=== PATIENT | female | born 1990 | race Caucasian/White ===

== ENCOUNTER 2021-11-23 14:28 | Outpatient (CLI) | payer OTHER, SELFPAY | END 2021-11-23 14:29 | disposition home or self-care (01) | LOC: LKVREF 12-04 08:28 | PROVIDERS: PCP Physician Assistant Medical; Visit Provider Emergency Medicine | DX: R30.0 Dysuria (principal); R39.15 Urgency of urination; N39.0 Urinary tract infection, site not specified | CPT/HCPCS: 87086; 87186 ==

== ENCOUNTER 2022-03-05 07:41 | Outpatient (CLI) | payer SELFPAY ==
--- NOTE | 2022-03-05 08:15 | CRLHL7_ITS ---
For Patients: As a result of the Cures Act, medical imaging exams and procedure reports are released immediately into your electronic medical record. You may view this report before your referring provider. If you have questions, please contact your health care provider. INDICATION: Evaluate size and dates TECHNIQUE: Ultrasound OB pelvis transvaginal. Real time siegel scale imaging of the pelvis was performed. COMPARISON: None FINDINGS: Sonographic imaging demonstrates a single living intrauterine gestation. The embryo demonstrates a regular cardiac rate measuring 71 beats per minute. The embryo`s crown rump length measurement of 2.5 cm corresponds to a gestational age of 9 weeks 1 day with a sonographic due date of 10/07/2022. There is a normal appearing yolk sac. There are no gross abnormalities noted within the embryo at this early state of development. The placenta has not yet developed. The gestational sac has a normal appearance. 1.1 centimeter x 0.5 centimeter x 1.5 centimeter subchorionic hemorrhage the amount of fluid within the sac appears appropriate for gestational age. The cervix is closed. The myometrium appears normal. The ovaries are of normal size. There are no suspicious fluid collections noted in the cul-de-sac. IMPRESSION: Viable intrauterine . Gestational age calculated at 9 weeks 1 day with a sonographic due date of 10/07/2022. 1.1 centimeter x 0.5 centimeter x 1.5 centimeters subchorionic hemorrhage. Dictated by Garry Beckford MD @ 03/05/2022 8:42:49 AM (Electronically Signed)
== END 2022-03-05 07:42 | disposition home or self-care (01) ==
LOC: US 07:43
PROVIDERS: PCP Physician Assistant Medical; Visit Provider Registered Nurse
DX: Z34.91 Encounter for supervision of normal pregnancy, unspecified, first trimester (principal); Z3A.08 8 weeks gestation of pregnancy
CPT/HCPCS: 76817

== ENCOUNTER 2022-03-05 10:00 | Outpatient (CLI) | payer SELFPAY ==
[2022-03-05 12:59] LABS: Chlamydia DNA Amplified* NOT DETECTED (No Detected); GC DNA Amplified* NOT DETECTED (No Detected)
[2022-03-05 13:05] LABS: Hepatitis B Surface Antigen* Negative (Negative)
[2022-03-05 13:15] LABS: HIV 1/2/P24 Combo Screen* Negative (Negative)
[2022-03-05 13:23] LABS: Hepatitis C Virus Antibody* Negative (Negative)
[2022-03-07 12:22] LABS: Rapid Plasma Reagin (RPR) Non Reactive (Non Reactive)
== END 2022-03-05 10:01 | disposition home or self-care (01) ==
PROVIDERS: PCP Physician Assistant Medical; Visit Provider Registered Nurse
DX: Z34.91 Encounter for supervision of normal pregnancy, unspecified, first trimester (principal)
CPT/HCPCS: 86592; 86703; 86762; 86787; 86803; 86850; 86900; 86901; 87086; 87340; 87491; 87591

== ENCOUNTER 2022-05-21 09:14 | Outpatient (CLI) | payer BC, SELFPAY ==
--- NOTE | 2022-05-21 09:15 | CRLHL7_ITS ---
For Patients: As a result of the Century Cures Act, medical imaging exams and procedure reports are released immediately into your electronic medical record. You may view this report before your referring provider. If you have questions, please contact your health care provider. OB ULTRASOUND CLINICAL HISTORY: anatomy survey. OSMIN by LMP: 10/10/2022. GA: 19 w, 5 d. INDICATION: anatomy survey. FINDINGS: position: Multiple positions. Cervix: Visualized. Technique: Transabdominal. Length of closed cervix: 3.7 cm. Placenta/cord: Anterior. Technique: Transabdominal. Placenta tip to internal OS: 2.9 cm. Umbilical Cord: 3-vessel cord. Placenta insertion: Central. Amniotic Fluid: 5.7 cm SDP (greater than/equal to: 2- less than 8 cm). SURVEY: Observed Structures Cerebellum: Yes. 20 cm; 20 w 1 d. Cisterna Magna: Yes. 3.8 mm. Nuchal Fold: Yes. 2.1 mm. Lateral Ventricle: Yes. 5.1 mm. CSP: Yes. Midline Falx: Yes. Choroid Plexus: Yes. Spine: Yes. Stomach: Yes. Abd Cord Insertion: Yes. Urinary Bladder: Yes. Kidneys: Yes. Diaphragm: Yes. Nose/lips: Yes. Orbital view: Yes. Profile: Right nasal bone not visualized. Upper Extremities: Yes. Lower Extremities: Yes. Hands: Yes. Feet: Yes. Four-Chamber Heart: Yes. LVOT: Yes. RVOT: Not visualized. 3VV: Yes. BPD: 4.2 cm. 18 w 6 d, 16 percent. HC: 16.7 cm. 19 w 3 d, 28 percent. AC: 16.0 cm. 21 w 1 d, 85 percent. FL: 3.3 cm. 20 w 3 d, 69 percent. FL/AC: 20.9 percent. HC/AC Ratio: 1.1. Heart rate: 152 beats per minute. age by this US: 20 w 0 d. OSMIN by this US: 10/08/2022. EFW: 363 g. Weight: 0 lbs, 13 oz. Percentile by OSMIN: 89 percent. COMMENT: The right ventricular outflow tract is suboptimally seen. The nasal bone is not visualized. IMPRESSION: Single live intrauterine gestation. No gross anomalies visualized. Nasal bone and right ventricular outflow tract suboptimally seen. Trudy Taylor M.D. Diagnostic/Breast Radiologist [email or web address] SAMIRP/angie jj/Dictated by: Trudy Taylor MD @ 05/21/2022 11:57:00 AM (Electronically Signed)
== END 2022-05-21 09:15 | disposition home or self-care (01) ==
LOC: US 09:15
PROVIDERS: PCP Physician Assistant Medical; Visit Provider Obstetrics & Gynecology
DX: Z34.92 Encounter for supervision of normal pregnancy, unspecified, second trimester (principal); Z3A.19 19 weeks gestation of pregnancy
CPT/HCPCS: 76805

== ENCOUNTER 2022-06-11 10:11 | Outpatient (CLI) | payer BC, SELFPAY ==
--- NOTE | 2022-06-11 10:15 | CRLHL7_ITS ---
For Patients: As a result of the Century Cures Act, medical imaging exams and procedure reports are released immediately into your electronic medical record. You may view this report before your referring provider. If you have questions, please contact your health care provider. INDICATION: Follow-up profile and spine COMPARISON: 05/21/2022 TECHNIQUE: Real time siegel scale imaging of the fetus was performed. FINDINGS: Sonographic imaging demonstrates a single living intrauterine gestation. Fetus demonstrates a regular cardiac rate of 139 beats per minute. Fetus has a variable position. The placenta lies anteriorly. Single deepest vertical pocket: 4.8 cm. profile appears normal. There is the suggestion of a small ventricular septal defect, image static images and also visualized on the cine clips. IMPRESSION: Possible small ventricular septal defect. Normal profile. Maternal medicine consult with echocardiogram suggested for further evaluation. Dictated by Garry Flynn MD @ 06/11/2022 12:22:36 PM (Electronically Signed)
== END 2022-06-11 10:12 | disposition home or self-care (01) ==
LOC: US 10:12
PROVIDERS: PCP Physician Assistant Medical; Visit Provider Obstetrics & Gynecology
DX: Z34.92 Encounter for supervision of normal pregnancy, unspecified, second trimester (principal)
CPT/HCPCS: 76816

== ENCOUNTER 2022-07-09 10:48 | Outpatient (CLI) | payer BC, SELFPAY | END 2022-07-09 10:49 | disposition home or self-care (01) | LOC: NFLDREF 07-10 03:45 | PROVIDERS: PCP Physician Assistant Medical; Referring Provider Physician Assistant Medical; Visit Provider Obstetrics & Gynecology | DX: Z34.92 Encounter for supervision of normal pregnancy, unspecified, second trimester (principal); Z3A.23 23 weeks gestation of pregnancy | CPT/HCPCS: 84443; 86592 ==

== ENCOUNTER 2022-09-10 14:22 | Outpatient (CLI) | payer BC, SELFPAY ==
[2022-09-11 12:11] LABS: Strep B DNA Probe POSITIVE (Negative)
[2022-09-11 12:12] LABS: Strep B Pen/Amox Allergy Yes
== END 2022-09-10 14:23 | disposition home or self-care (01) ==
LOC: NFLDREF 14:22
PROVIDERS: PCP Physician Assistant Medical; Visit Provider Obstetrics & Gynecology
DX: Z34.93 Encounter for supervision of normal pregnancy, unspecified, third trimester (principal); Z3A.35 35 weeks gestation of pregnancy
CPT/HCPCS: 87081; 87186; 87653

== ENCOUNTER 2022-09-28 05:31 | Inpatient (IN) | payer BC, SELFPAY ==
[2022-09-28] VITALS (61 sets, daily range): BP systolic 104–135; BP diastolic 53–84; PULSE 57–85; RESP 16–18; TEMP 36.6–37.3; O2SAT 49–100; BMI 38.6
--- NOTE | 2022-09-28 05:43 | P.LDBA_ITS ---
Documented by User: Brittani Rodriguez MD 10/11/22 16:26 Subjective History of Present Illness Narrative: Patient is being admitted to Labor and Delivery for SROM at term. She is a 32 year old at 38 2/7 weeks gestation. She had rupture of membranes at 3:20 this AM. At presentation to hospital, leakage of meconium-stained fluid was noted. OB Problem List: Sri: Abe Villalba. Sons: Chacho Howell. Baby: Boy! Crew This will be tomas's first baby. 1. H/o LEEP: ?2017. Last pap: 04/2021- normal, neg HPV 2. Severe anxiety. Citalopram 20mg.? PHQ 3, RADAMES 5 at first OB. +irritability, easily annoyed. Declines counseling referral.? 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 normal at 2.160 3. ATIF 1.1 x 0.5 x 1.5 cm on first OB u/s 4. VSD suspected on follow up US 06/11/22 * -Perinatology referral placed for echocardiogram, pending for mid- June:? MFM evaluation on 07/14/2022:? Single intrauterine at 27 weeks 3 days, no anomalies identified,?pediatric Cardiology performed echo and that was found to be normal.? Growth parameters normal.? Normal amount of amniotic fluid.? Cervix closed and long.? Return to primary provider for continued care. 5.? History of rapid labor.? Favors elective IOL at 39 weeks if still . 6.? GBS positive.? Ampicillin during labor.? (Oral amoxicillin caused diarrhea, but this is not true allergy.)? Requests probiotic while in the hospital.? Flu vaccination: Recommended.? Patient declines COVID vaccination:? Recommended.? Patient declines/strongly opposed TDAP- 07/30/22 Her full history and physical was dictated by Dr. Jones on 09/24/22. Please see this for details. OB - Problem Based A/P Additional Plan (1) GBS (group B Streptococcus carrier), +RV culture, currently : Status: Inactive Plan: Begin ampicillin. Patient desires probiotic. (2) Rupture of membranes with meconium present: Status: Inactive Plan Admit to Center for expectant management of SROM at term. She is currently farhan regularly. Will monitor for progress in labor. She desires epidural. Peds to be present at delivery for indication of meconium. Delivery/Labor/Induction Plan Plan: expectant management OB Exam Physical Exam Vital signs: Temp Pulse Resp BP 98.9 F 75 18 114/68 09/28/22 05:00 09/28/22 04:59 09/28/22 05:00 09/28/22 04:59 Narrative: Cervical exam per RN: , visibly ruptured tracing: Baseline 130 / accelerations present / no decelerations / moderate variability Documented by User: Erinn Jones MD 09/28/22 17:09 OB - Problem Based A/P Additional Plan (1) GBS (group B Streptococcus carrier), +RV culture, currently : Status: Inactive (2) Rupture of membranes with meconium present: Status: Inactive OB Exam Physical Exam Narrative: Cervical exam per RN: , visibly ruptured tracing: Baseline 130 / accelerations present / no decelerations / moderate variability. Reactive, category 1. Heart: Regular rate and rhythm without gallop, rub or murmur. Chest: Clear to auscultation bilaterally. Abdomen: Gravid, nontender. Extremities: 2+ bilateral lower extremity edema to the mid thomas, no pain.
[2022-09-28] MEDS: LACTATED RINGERS 1000 ML 1,000 ML 125 ML IV (06:43)
[2022-09-28 06:47] LABS: Basophils Absolute Auto 0.02 K/uL (0.00-0.30); Basophils Percent Auto 0.2 % (0.0-3.0); Eosinophils Absolute Auto 0.06 K/uL (0.00-0.50); Eosinophils Percent Auto 0.6 % (0.0-7.0); Hematocrit 38.1 % (33.0-51.0); Hemoglobin* 13.2 gm/dL (12.0-16.0); Immature Granulocytes Abs Auto 0.14 K/uL (0.00-0.30); Immature Granulocytes Pct Auto 1.4 %; Lymphocytes Percent Auto 16.3 % (20-44); Mean Corpuscular HGB Conc 35 gm/dL (32-36); Mean Corpuscular Hemoglobin 32 pg (26-34); Mean Corpuscular Volume 92 fL (80-100); Monocytes Percent Auto 6.9 % (0.0-11.0); Neutrophils Percent Auto 74.6 % (42.0-72.0); Platelet Count* 174 K/uL (140-440); Red Blood Count 4.15 m/uL (4.00-5.20); White Blood Count* 9.89 K/uL (4.50-11.00)
[2022-09-28 06:50] LABS: Slide Review Reflex No
[2022-09-28] MEDS: AMPICILLIN 2 GM in 0.9 % SODIUM CHLORIDE Mini-bag 100 ML IVPB (07:00)
[2022-09-28] MEDS: AMPICILLIN 1 GM in 0.9 % SODIUM CHLORIDE Mini-bag 100 ML IVPB ×2 (10:52→14:44)
[2022-09-28] MEDS: OXYTOCIN 30 unit/500 ML in NS 30 UNIT/500 ML BAG IVPB ×2 (12:58→18:03)
[2022-09-28] MEDS: LACTATED RINGERS 1000 ML 1,000 ML 999 ML IV ×2 (14:47→16:10)
[2022-09-28] MEDS: ROPIVACAINE 0.2% 100 ml 100 ML 12 MG EPIDURAL (15:26)
[2022-09-28] MEDS: ACETAMINOPHEN 500 MG TABLET 1000 MG PO ×2 (15:49→22:25)
--- NOTE | 2022-09-28 16:27 | P.ANBPRC_ITS ---
[facility] Medical History History of abnormal cervical Pap smear Surgical History H/O wisdom tooth extraction History of elbow surgery History of loop electrosurgical excision procedure (LEEP) of cervix Family History Paternal Grandfather Dementia Maternal Grandfather Diabetes Other Migraine headache Social History What is your current living situation?: I presently have a place to live Problems where you live: pests, such as bugs, ants, or mice In the past 12 months, utilities in danger of being shut off: no In the past 12 mos, have been you worried that your food would run out before you had money to buy more?: never true In the past 12 mos, the food you bought just didn't last and you didn't have money to buy more?: never true Smoking Status: Never smoker How often does anyone, including family, friends and others, physically hurt you : never How often does anyone, including family, friends and others, insult or talk down to you: never How often does anyone, including family, friends and others, threaten you with harm: never How often does anyone, including family, friends and others, scream or curse at you: never Little interest or pleasure in doing things: several days Feeling down, depressed, or hopeless: more than half the days Meds Home Medications and Allergies Home Medications Medication Instructions Recorded Confirmed Type vitamin #56-iron 35 mg 1 cap PO QDAY 05/21/22 09/28/22 History and 5 mg-folic acid 1 mg-dha capsule cholecalciferol (vitamin D3) 25 25 mcg PO QDAY 07/09/22 09/28/22 History mcg (1,000 unit) capsule magnesium carb,citrate,oxide 300 mg PO DAILY 07/09/22 09/28/22 History pyridoxine (vitamin B6) 100 mg 50 mg PO ONCE 07/09/22 09/28/22 History tablet jiwlhwd-wvkobgzlzcnox-uiekspkg 250 2 tab PO Q6H PRN 07/30/22 09/28/22 History mg-250 mg-65 mg tablet (Excedrin Migraine) ferrous sulfate 325 mg (65 mg 325 mg PO QDAY 09/24/22 09/28/22 History iron) tablet Allergies Allergy/AdvReac Type Severity Reaction Status Date / Time No Known Allergies Allergy Verified 09/24/22 09:01 Results Labs Labs: Laboratory Results - last 24 hr 09/28/22 06:40 WBC 9.89 RBC 4.15 Hgb 13.2 Hct 38.1 MCV 92 MCH 32 MCHC 35 RDW Coeff of Ronald 13.0 Plt Count 174 Neut % (Auto) 74.6 H Lymph % (Auto) 16.3 L [place] % (Auto) 6.9 Eos % (Auto) 0.6 Baso % (Auto) 0.2 Neut # (Auto) 7.40 H Lymph # (Auto) 1.60 [place] # (Auto) 0.70 Eos # (Auto) 0.06 Baso # (Auto) 0.02 Blood Type O Positive Antibody Screen NEGATIVE Vital Signs Vital Signs: Last Vital Signs Temp 98.5 F 09/28/22 13:00 Pulse 59 L 09/28/22 16:11 Resp 18 09/28/22 05:00 BP 119/66 09/28/22 16:11 Pulse Ox 98 09/28/22 15:46 Weight: 98.928 kg Height: 160.02 cm Anesthesia Procedures Epidural Insertion Patient Location: OB Start Time: 15:00 Stop Time: 16:00 Start Date: 09/28/22 Stop Date: 09/28/22 Reason for Block: procedure for pain Patient Position: sitting Performed By: Sung Gipson Preanesthetic Checklist: IV checked, risks and benefits discussed, surgical consent, monitors and equipment checked, pre-op evaluation, timeout performed and anesthesia consent Prep: chlorhexidine gluconate Monitoring: blood pressure monitoring, continuous pulse oximetry and heart rate Approach: midline Vertebral Space: lumbar (1-5) Epidural Technique: PRESTON saline Needle Type: Tuohy needle Injection Technique: continuous catheter Needle gauge: 17 Needle Length (cm): 10 cm Needle Insertion Depth (cm): 6 Catheter Gauge: 19 Catheter Type: multi-orifice Catheter at skin depth (cm): 12 Test Dose Result: negative and lidocaine 1.5% with epinephrine 1 to 200,000
[2022-09-28] MEDS: PHENYLEPHRINE 100 MCG/ML SYRINGE IVP ×2 (16:32→16:48)
--- NOTE | 2022-09-28 17:58 | W.PM.VAGDEL1 ---
Procedure Delivery date: 09/28/22 Procedure Done: Global Procedure Details: Daina is a 32 year-old G 3 P 2002 now 3 admitted on 09/28/2022 at 6:00 a.m. at 38 Weeks, 2 Days gestation for PROM. PROM occurred at 02:15am on 09/28/2022 with moderately meconium stained fluid. Labor Analgesia: Epidural Pitocin: Yes Labor onset: 09/28/2022 at 3:30 p.m.. Complete: 09/28/2022 at 4:53 p.m.. Pushin09/28/2022 at 5:28 p.m.. heart tones during second stage were: Category 2 with 1 extended deceleration that lasted approximately 5 minute when the vertex was manually rotated from ROT position to direct OA then moderate variability between contractions with sporadic variable decelerations for the remainder of the contractions: Reassuring. At 5:45 p.m. a viable male infant delivered in vertex direct OA presentation over an intact perineum via normal spontaneous vaginal delivery. The infant was placed on maternal abdomen. Cord was clamped and cut after a 60 second delay. Nose and mouth were bulb suctioned. Infant weight pending. 8 at 1 minute and 8 at 5 minutes. Shoulder dystocia: No. Nuchal cord: No Placenta delivered spontaneously and complete with a three-vessel cord at 5:49 p.m. Laceration(s): None Blood loss: 25 mL. Blood loss measurement type: Quantitative Sponge and needles counts are correct. Specimen: None Mother and were stable after delivery. Infant's name: Crew The patient is planning on pumping and formula feeding. Events: Premature Rupture of Membrane and Meconium Stained Fluid Intrapartal Events: Labor Augmentation and Mod/Heavy Meconium Fluid Delivery monitor: external FHT and external uterine Route of delivery: Laceration description: None Estimated blood loss (mL): 25 Anesthesia type: Epidural Disposition: floor Infant Gender: Male presentation: vertex Placental Delivery Description: Spontaneous Cord Description: 3 Vessels
[2022-09-28] MEDS: IBUPROFEN 600 MG TABLET PO (18:45)
[2022-09-28] MEDS: LANOLIN CREAM 1 APPLIC TOPICAL (22:40)
[2022-09-29] MEDS: IBUPROFEN 600 MG TABLET PO ×4 (01:05→19:21)
[2022-09-29 04:00] VITALS: BP 120/79; PULSE 57; RESP 16; TEMP 36.4; O2SAT 98
[2022-09-29] MEDS: ACETAMINOPHEN 500 MG TABLET 1000 MG PO ×3 (04:21→16:04)
[2022-09-29 07:18] VITALS: BP 129/84; PULSE 56; RESP 18; TEMP 36.8; O2SAT 99
[2022-09-29 07:19] LABS: Hemoglobin* 11.5 gm/dL (12.0-16.0)
--- NOTE | 2022-09-29 08:13 | PM.OBDSVD1 ---
DS: Providers Provider Date Seen: 09/29/22 Date of admission: 09/28/22 05:31 Primary care physician: Olinda Galan PA-C Admitting Clinician: Brittani Rodriguez MD Attending Physician on discharge: Brittani Rodriguez MD Date of Discharge: 09/29/22 DS: Diagnosis Discharge Diagnosis (1) (normal spontaneous vaginal delivery): Status: Acute Problem details: Boy, Crew. Apgars 8/8 (2) care following vaginal delivery: Status: Acute (3) Lactating mother: Status: Acute (4) Anxiety: Status: Acute Exam Narrative: Exam Narrative: GENERAL APPEARANCE:? normal affect, alert, no distress? MOOD:? appropriate? CHEST:? clear to auscultation and percussion? HEART:? regular rate and rhythm? ABDOMEN:? soft, non-tender the uterine fundus is 2 cm Below Umbilicus, Midline and is appropriate for the stage of recovery. ? PERINEUM:? mild edema of the perineum and it is intact.? EXTREMITIES:? normal and no edema? Patient has no complaints? No active bleeding?? Doing well? She is requesting discharge home.? Const: Vital Signs, click to edit/add: Vital Signs - 24 hr 09/28/22 08:30 09/28/22 10:55 09/28/22 10:56 Temperature 98.6 F 98.4 F Pulse Rate 69 Pulse Rate [Pulse Oximeter] Respiratory Rate Blood Pressure 124/76 Blood Pressure [Le ft Arm] Pulse Oximetry [facility] 12:00 09/28/22 13:00 09/28/22 15:11 Temperature 98.6 F 98.5 F Pulse Rate 72 Pulse Rate [Pulse Oximeter] Respiratory Rate Blood Pressure 133/75 Blood Pressure [Le ft Arm] Pulse Oximetry 100 [facility] 09/28/22 15:16 09/28/22 15:17 09/28/22 15:19 Temperature Pulse Rate 76 73 Pulse Rate [Pulse Oximeter] Respiratory Rate Blood Pressure 131/75 132/77 Blood Pressure [Le ft Arm] Pulse Oximetry 98 [facility] 09/28/22 15:21 09/28/22 15:23 09/28/22 15:25 Temperature Pulse Rate 76 80 Pulse Rate [Pulse Oximeter] Respiratory Rate Blood Pressure 113/63 117/65 Blood Pressure [Le ft Arm] Pulse Oximetry 97 Oxygen Delivery Me thod 09/28/22 15:26 09/28/22 15:27 09/28/22 15:29 Temperature Pulse Rate 77 76 Pulse Rate [Pulse Oximeter] Respiratory Rate Blood Pressure 112/61 113/57 L Blood Pressure [Le ft Arm] Pulse Oximetry 98 Oxygen Delivery Me thod 09/28/22 15:31 09/28/22 15:31 09/28/22 15:31 Temperature Pulse Rate Pulse Rate [Pulse Oximeter] Respiratory Rate Blood Pressure 115/62 Blood Pressure [Le ft Arm] Pulse Oximetry 96 49 L Oxygen Delivery Me thod 09/28/22 15:31 09/28/22 15:33 09/28/22 15:35 Temperature Pulse Rate 77 75 77 Pulse Rate [Pulse Oximeter] Respiratory Rate Blood Pressure 116/64 110/59 L Blood Pressure [Le ft Arm] Pulse Oximetry Oxygen Delivery Mi [facility] 09/28/22 15:36 09/28/22 15:37 09/28/22 15:39 Temperature Pulse Rate 77 85 Pulse Rate [Pulse Oximeter] Respiratory Rate Blood Pressure 112/60 115/62 Blood Pressure [Le ft Arm] Pulse Oximetry 100 Oxygen Delivery Mi thod 09/28/22 15:41 09/28/22 15:43 09/28/22 15:45 Temperature Pulse Rate 75 69 72 Pulse Rate [Pulse Oximeter] Respiratory Rate Blood Pressure 109/59 L 112/63 111/61 Blood Pressure [Le ft Arm] Pulse Oximetry 99 Oxygen Delivery Me thod 09/28/22 15:46 09/28/22 15:47 09/28/22 15:49 Temperature Pulse Rate 79 76 Pulse Rate [Pulse Oximeter] Respiratory Rate Blood Pressure 114/60 119/62 Blood Pressure [Le ft Arm] Pulse Oximetry 98 Oxygen Delivery Mi thod 09/28/22 15:51 09/28/22 15:53 09/28/22 15:55 Temperature Pulse Rate 81 77 84 Pulse Rate [Pulse Oximeter] Respiratory Rate Blood Pressure 120/68 120/66 119/66 Blood Pressure [Le ft Arm] Pulse Oximetry Oxygen Delivery Me thod 09/28/22 15:57 09/28/22 15:59 09/28/22 16:01 Temperature Pulse Rate 74 75 72 Pulse Rate [Pulse Oximeter] Respiratory Rate Blood Pressure 116/65 121/62 118/65 Blood Pressure [Le ft Arm] Pulse Oximetry Oxygen Delivery Mi thod 09/28/22 16:03 09/28/22 16:05 09/28/22 16:07 Temperature Pulse Rate 68 61 60 Pulse Rate [Pulse Oximeter] Respiratory Rate Blood Pressure 115/58 L 109/55 L 109/55 L Blood Pressure [Le ft Arm] Pulse Oximetry Oxygen Delivery Mi thod 09/28/22 16:09 09/28/22 16:11 09/28/22 16:31 Temperature Pulse Rate 77 59 L 58 L Pulse Rate [Pulse Oximeter] Respiratory Rate Blood Pressure 107/64 119/66 107/53 L Blood Pressure [Le ft Arm] Pulse Oximetry [facility] 16:37 09/28/22 16:42 09/28/22 16:46 Temperature Pulse Rate 63 Pulse Rate [Pulse Oximeter] Respiratory Rate Blood Pressure 104/59 L Blood Pressure [Le ft Arm] Pulse Oximetry 96 98 [facility] 09/28/22 17:04 09/28/22 17:18 09/28/22 17:51 Temperature Pulse Rate 84 61 72 Pulse Rate [Pulse Oximeter] Respiratory Rate Blood Pressure 111/60 105/60 111/56 L Blood Pressure [Le ft Arm] Pulse Oximetry [facility] 09/28/22 18:06 09/28/22 18:22 09/28/22 18:42 Temperature Pulse Rate 66 57 L 65 Pulse Rate [Pulse Oximeter] Respiratory Rate Blood Pressure 113/56 L 135/68 126/84 Blood Pressure [Le ft Arm] Pulse Oximetry [facility] 09/[facility]/22 18:52 09/28/22 19:06 09/28/22 19:20 Temperature Pulse Rate 68 65 Pulse Rate [Pulse Oximeter] Respiratory Rate 16 Blood Pressure 115/76 122/65 Blood Pressure [Le ft Arm] Pulse Oximetry [facility] 09/28/22 19:21 09/28/22 19:35 09/28/22 19:36 Temperature Pulse Rate 65 69 Pulse Rate [Pulse Oximeter] Respiratory Rate 16 Blood Pressure 119/70 124/77 Blood Pressure [Le ft Arm] Pulse Oximetry [facility] 09/28/22 19:49 09/28/22 19:50 09/28/22 22:27 Temperature 97.8 F Pulse Rate 62 Pulse Rate [Pulse Oximeter] 70 Respiratory Rate 16 16 Blood Pressure 112/60 Blood Pressure [Le ft Arm] 113/71 Pulse Oximetry 98 Oxygen Delivery Me thod Room Air 09/29/22 04:00 09/29/22 07:18 Temperature 97.6 F 98.2 F Pulse Rate Pulse Rate [Pulse Oximeter] 57 L 56 L Respiratory Rate 16 18 Blood Pressure Blood Pressure [Le ft Arm] 120/79 129/84 Pulse Oximetry 98 99 Oxygen Delivery Me thod Room Air Room Air OB - DS: Summary Hospital Course Hospital Course: Patient is a 32year old, G 3 now P 3? admitted on 09/28/22 at 38 Weeks, 2?Days gestation for labor.? She had an uncomplicated vaginal delivery.? She delivered a viable male infant.? She is breast feeding and pumping. She reports things are going pretty well but did choose to supplement with formula last night so she could sleep. She plans to breastfeed and pump after discharge.? the patient has done well.?She is experiencing cramping pain especially with . Her pain is well controlled with current medications.? She has no new complaints.? Vitals have been stable. She has remained afebrile. She is voiding without difficulty. She is passing gas and has not had a bowel movement. She is ambulating and denies any dizziness. She is planning IUD (unsure which one) for control. Peripartum Data delivery method: Vaginal Laceration description: None Episiotomy description: None complications: none [place] Gender: Male Infant Discharge Plan: Home Status at Discharge Functional status at discharge: independent ambulation Overall status at discharge: patient is progressing back to baseline Time Spent with Patient Time attestation: Total time spent providing and/or coordinating discharge services: Discharge Plan Discharge Disposition: Home, Self-Care Date of Admission: 09/28/22 05:31 Attending Provider on Discharge: Maira Guaman Primary Care Provider: Olinda Galan Condition: Stable Anticipated Discharge Date/Time: 09/30/22 11:00 Discharge Medications: New docusate sodium 100 mg Capsule 100 mg PO BID PRNQty: 100 0RF ibuprofen 600 mg Tablet 600 mg PO Q6H PRNQty: 30 0RF Continued PNV #[id number] acid-dha 35 mg iron-5 mg iron-1 mg capsule 1 cap PO QDAY magnesium carb,citrate,oxide 300 mg magnesium tablet 300 mg PO DAILY Rx Instructions: 1 tab orally; cholecalciferol (vitamin D3) 25 mcg (1,000 unit) capsule 25 mcg PO QDAY Excedrin Migraine 250-250-65 mg tablet 2 tab PO Q6H PRN ferrous sulfate 325 mg (65 mg iron) tablet 325 mg PO QDAY citalopram 20 mg tablet 20 mg PO QDAY Qty: 90 3RF Patient Comments: TAKE 1 TABLET BY MOUTH DAILY Discontinued pyridoxine (vitamin B6) 100 mg tablet 50 mg PO ONCE Discharge Orders: Discharge Order (Routine); Ordered 09/29/22 Ordered By: Maira Guaman Additional Instructions: Discharge instructions were reviewed with the patient including signs and symptoms of infection and home going medications.? Lifting Restrictions: 20 pounds for 6? weeks? ?? Do not drive while taking narcotic pain meds.? Off Work or School for 6 weeks.? ?? Symptoms to report to doctor:? -Bleeding that saturates more than one pad per hour? -Passing clots larger than the size of a golf ball? -Pain not relieved by prescribed medication? -Fever above 100.4 degrees Fahrenheit? -A foul vaginal odor? -Difficulty in emotions, mood and functions? -Thoughts of hurting yourself and/or ? -Painful, reddened area in your breast? -Any drainage, redness or tenderness in your IV/epidural site? -Severe headache that doesn't improve after taking medications? -Changes in vision, including temporary loss of vision, blurred vision, and/or light sensitivity? -Upper abdominal pain (usually under ribs on the right side)? -Decrease in urination or painful, frequent urinating? -Chest pain? -Shortness of breath? -Tenderness or pain with redness and/swelling in the calf(s) of your leg? ?? Follow Up in clinic in 2 and 6 weeks.? ?? consultation services are available to all mothers and babies for the first year after delivery.? To make an appointment, please call [phone].? Activity Level: Activity as Tolerated Discharge Diet: Regular Follow Up Appointments: [facility] [Provider Group] Forms: MyHealth Info Instructions
[2022-09-29 11:53] VITALS: BP 120/81; PULSE 56; RESP 16; TEMP 36.8; O2SAT 99
[2022-09-29 16:20] VITALS: BP 123/79; PULSE 56; RESP 16; TEMP 36.8; O2SAT 99
== END 2022-09-29 19:30 | disposition home or self-care (01) | DRG 560 ==
LOC: OB 05:44 → OB OUT 05:50 → OB 18:10
PROVIDERS: Obstetrics & Gynecology; Admitting Provider Obstetrics & Gynecology; PCP Physician Assistant Medical; Visit Provider Obstetrics & Gynecology
DX: O42.02 Full-term premature rupture of membranes, onset of labor within 24 hours of rupture (principal); O77.0 Labor and delivery complicated by meconium in amniotic fluid; O99.344 Other mental disorders complicating childbirth; F41.9 Anxiety disorder, unspecified; O99.824 Streptococcus B carrier state complicating childbirth; Z37.0 Single live birth; Z3A.38 38 weeks gestation of pregnancy
CPT/HCPCS: 01967; 36415; 85018; 85025; 86850; 86900; 86901; 99213; A9270; J0290; J2371; J2795; J7120; S0020

== ENCOUNTER 2022-10-14 09:24 | Outpatient (CLI) | payer BC, SELFPAY | END 2022-10-14 09:25 | disposition home or self-care (01) | LOC: FRMREF 09:26 | PROVIDERS: PCP Physician Assistant Medical; Visit Provider Registered Nurse | DX: Z39.2 Encounter for routine postpartum follow-up (principal) | CPT/HCPCS: 87086; 87186 ==

== ENCOUNTER 2022-11-11 13:22 | Outpatient (CLI) | payer MEDICAID, SELFPAY | END 2022-11-11 13:23 | disposition home or self-care (01) | PROVIDERS: PCP Physician Assistant Medical; Referring Provider Physician Assistant Medical; Visit Provider Registered Nurse | DX: R30.0 Dysuria (principal); Z30.9 Encounter for contraceptive management, unspecified; Z12.4 Encounter for screening for malignant neoplasm of cervix; Z39.2 Encounter for routine postpartum follow-up; Z30.430 Encounter for insertion of intrauterine contraceptive device | CPT/HCPCS: 87086 ==

== ENCOUNTER 2023-03-03 17:03 | Emergency (ER) | payer MEDICAID, SELFPAY ==
[2023-03-03 17:13] VITALS: BP 116/80; PULSE 101; RESP 18; TEMP 37.8; O2SAT 98; BMI 27.3
--- NOTE | 2023-03-03 17:20 | CRLHL7_ITS ---
For Patients: As a result of the Century Cures Act, medical imaging exams and procedure reports are released immediately into your electronic medical record. You may view this report before your referring provider. If you have questions, please contact your health care provider. INDICATION: Trauma. TECHNIQUE: Left knee 3 views. COMPARISON: None. FINDINGS: No acute fractures or malalignment. Small joint effusion. Joint spaces are maintained. Soft tissues are unremarkable. IMPRESSION: Small joint effusion with no acute osseous abnormality. Dictated by Rj Castro MD @ 03/03/2023 7:27:36 PM (Electronically Signed)
--- NOTE | 2023-03-03 18:46 | ED_ITS ---
HPI - General Adult General Date Seen: 03/03/23 Chief complaint: Extremity Pain/Injury, Lower Stated complaint: knee pain after fall Time Seen by Provider: 03/03/23 18:07 History of Present Illness HPI narrative: This is a pleasant generally healthy 32-year-old female presenting to the ER today with her and son for evaluation of a left knee injury. She was trying to climb up and amount into the saddle of her horse this evening when she fell off and injured her left knee. She says the course was beginning to fleming and move forward. She at her left foot in the stir up and then was stepping back down onto the ground with her right foot. The horse moved forward and it sounds like her left foot was pulled forward in the stirrup before she fell. She landed directly on the outside of her left knee. She heard a ?pop? in her knee. Since then she has been having pain around the patella with apprehension that it might slight sideways (laterally) as well as with pain and swelling over the medial aspect her proximal tibia. She has been able to bear weight. She says her knee feels ?weak? like it might give out. No pain radiating down her lower leg. No pain in her thigh. No numbness or tingling in her foot. No other injuries in the fall. She has no previous history of knee problems. Related Data Home Medications Medication Instructions Recorded Confirmed propranolol 20 mg tablet 20 mg PO ONCE 11/11/22 11/11/22 citalopram 20 mg tablet 20 mg PO DAILY 03/03/23 03/03/23 Allergies Allergy/AdvReac Type Severity Reaction Status Date / Time No Known Allergies Allergy Verified 11/11/22 13:06 [facility] Medical History Rupture of membranes with meconium present ?O77.0 - Labor and delivery complicated by meconium in amniotic fluid (ICD- 10) GBS (group B Streptococcus carrier), +RV culture, currently ?O99.820 - Streptococcus B carrier state complicating (ICD-10) ?Z34.90 - Encounter for supervision of normal , unspecified, unspecified trimester (ICD-10) (normal spontaneous vaginal delivery) (09/28/22) ?O80 - Encounter for full-term uncomplicated delivery (ICD-10) History of abnormal cervical Pap smear ?Z87.42 - Personal history of other diseases of the female genital tract (ICD-10) Surgical History H/O wisdom tooth extraction ?K08.409 - Partial loss of teeth, unspecified cause, unspecified class (ICD- 10) History of loop electrosurgical excision procedure (LEEP) of cervix ?Z98.890 - Other specified postprocedural states (ICD-10) History of elbow surgery ?Z98.890 - Other specified postprocedural states (ICD-10) Family History Paternal Grandfather Dementia Maternal Grandfather Diabetes Other Migraine headache Social History What is your current living situation?: I presently have a place to live Problems where you live: pests, such as bugs, ants, or mice In the past 12 months, utilities in danger of being shut off: no In past 12 months, lack of transportation kept you from medical appts, meetings, work, or getting things needed for daily living: no In the past 12 mos, have been you worried that your food would run out before you had money to buy more?: never true In the past 12 mos, the food you bought just didn't last and you didn't have mo leonidas to buy more?: never true Smoking Status: Never smoker How often does anyone, including family, friends and others, physically hurt you : never How often does anyone, including family, friends and others, insult or talk down to you: never How often does anyone, including family, friends and others, threaten you with harm: never How often does anyone, including family, friends and others, scream or curse at you: never Little interest or pleasure in doing things: more than half the days Feeling down, depressed, or hopeless: not at all Exam Narrative: Exam Narrative: Constitutional: Appears well-developed and well-nourished. Alert. Conversant. Non toxic. HENT: Head: Atraumatic. Nose: Nose normal. Mouth/Throat: Oral mucosa is clear and moist. no trismus. Pharynx normal. Tonsils symmetric. No tonsillar enlargement, erythema, or exudate. Eyes: Conjunctivae normal. EOM normal. Pupils equal, round, and reactive to light. No scleral icterus. Neck: Normal range of motion. Neck supple. No tracheal deviation present. Cardiovascular: Normal rate, regular rhythm. No gallop. No friction rub. No murmur heard. Symmetric radial artery pulses Pulmonary/Chest: Effort normal. No stridor. No respiratory distress. No wheezes. No rales. No rhonchi . No tenderness. Abdominal: Soft. Bowel sounds normal. No distension. No mass. No tenderness. No rebound. No guarding. Musculoskeletal: RUE: Normal range of motion. No tenderness. No deformity LUE: Normal range of motion. No tenderness. No deformity RLE: Normal range of motion. No edema. No tenderness. No deformity LLE: Hip nontender. Quadriceps, femur, hamstring, and thigh nontender. Knee: Inspection reveals swelling over the proximal medial tibia. No definite joint effusion. No redness. No deformity. No lacerations or open fractures. She is holding her knee flexed at just less than 90? in her wheelchair. This is her position of comfort. She is able to fully extend but when she does so she says her knee feels weak and she feels like her patella might sublux laterally. No definite ligamentous laxity of the ACL, PCL, LCL, MCL. Symmetric come with compared to the uninjured right knee. No definite patellar subluxation but she does have apprehension especially with lateral force on the patella. No tenderness over the proximal fibula. Swelling over the proximal tibia but really not much tenderness. No crepitus. No tenderness of the tibial spine. Ankle, hindfoot, midfoot, forefoot are nontender. Normal ankle and foot range of motion. Intact motor and sensory function in the foot. Strong DP PT pulses. Neurological: Alert and oriented to person, place, and time. Normal strength. CN II-VII intact. No sensory deficit. GCS eye subscore is 4. GCS verbal subscore is 5. GCS motor subscore is 6. Normal coordination Skin: Skin is warm and dry. No rash noted. No pallor. Normal capillary refill. Psychiatric: Normal mood. Normal affect. Const: Vital Signs, click to edit/add: Vital Signs - 24 hr 03/03/23 17:13 03/03/23 19:40 Temperature 100.1 F H Pulse Rate [Right Pulse Oximeter] 101 H 87 Respiratory Rate 18 Blood Pressure [Ri ght Upper Arm] 116/80 120/75 Pulse Oximetry 98 99 Oxygen Delivery Me thod Room Air Room Air Course Vital Signs Vital signs: Initial Vital Signs Temperature 100.1 F H 03/03/23 17:13 Temperature Source Temporal Artery Scan 03/03/23 17:13 Pulse Rate 101 H 03/03/23 17:13 Respiratory Rate 18 03/03/23 17:13 Blood Pressure 116/80 03/03/23 17:13 Blood Pressure Mean 92 03/03/23 17:13 Blood Pressure Position Sitting 03/03/23 17:13 Pulse Oximetry 98 03/03/23 17:13 Oxygen Delivery Method Room Air 03/03/23 17:13 Vital Signs Temperature 100.1 F H 03/03/23 17:13 Pulse Rate 101 H 03/03/23 17:13 Respiratory Rate 18 03/03/23 17:13 Blood Pressure 116/80 03/03/23 17:13 Pulse Oximetry 98 03/03/23 17:13 Oxygen Delivery Method Room Air 03/03/23 17:13 Temperature 100.1 F H 03/03/23 17:13 Pulse Rate 87 03/03/23 19:40 Respiratory Rate 18 03/03/23 17:13 Blood Pressure 120/75 03/03/23 19:40 Pulse Oximetry 99 03/03/23 19:40 Oxygen Delivery Method Room Air 03/03/23 19:40 Medical Decision Making [facility] Narrative Medical decision making narrative: This is a pleasant 32-year-old female presenting to the ER today for a left knee injury that occurred when she fell off her horse and hit her knee against the ground. She felt a pop turns injury. On my exam she does have swelling over her proximal medial tibia. She also has some discomfort in her patella and is apprehensive that it might sublux laterally. Fortunately x-rays obtained and are negative for any femur, tibia, tibial plateau fracture, patellar fracture, fibular fracture or other bony injury. On my exam she does not have any obvious patella dislocation. No definite joint effusion. No redness. No definite ligamentous laxity but exam could be limited by guarding today. Will place the patient into a knee immobilizer and on crutches. Recommend close outpatient follow-up with the [facility]. Patient is declining offer pain med here in the ER. Recommended ice, rest, elevation when possible. [id number] pain meds as needed. If not completely improved within 2-3 days, follow-up with the [facility]. She will call tomorrow to schedule a follow-up appointment. Imaging Data XR left knee: Attestation: I have reviewed the pertinent imaging results. My impression: No acute fracture Radiologist's impression: FINDINGS: No acute fractures or malalignment. Small joint effusion. Joint spaces are maintained. Soft tissues are unremarkable. Discharge Plan Discharge Clinical Impression: Injury of knee, left Patient Disposition: Home, Self-Care Condition: Stable Instructions: Crutch Instructions (ED), ACL Injury (ED) Additional Instructions: As we discussed, use the knee brace and crutches until your knees improved. If not improved within 2-3 days, please recheck with the orthopedic clinic. You can call the [facility] tomorrow morning at [phone] to schedule a follow-up appointment. If you have worsening pain, instability of your knee, numbness or tingling or pallor in your leg, or any concerns, please come back to the ER right away. Activity Level: No Restrictions Discharge Diet: Regular Prescriptions: No Action propranolol 20 mg tablet 20 mg PO ONCE citalopram 20 mg tablet 20 mg PO DAILY Follow Up/Referrals: Olinda Galan PA-C [Primary Care Provider] - Stand Alone Forms: [employer] Info Instructions
[2023-03-03 19:40] VITALS: BP 120/75; PULSE 87; O2SAT 99
== END 2023-03-03 19:44 | disposition home or self-care (01) ==
PROVIDERS: Emergency Provider Emergency Medicine; PCP Physician Assistant Medical
DX: M25.562 Pain in left knee (principal); V80.010A Animal-rider injured by fall from or being thrown from horse in noncollision accident, initial encounter
CPT/HCPCS: 73562; 99283

== ENCOUNTER 2023-03-16 09:12 | Outpatient (CLI) | payer MEDICAID, SELFPAY ==
--- NOTE | 2023-03-16 09:15 | MR_ITS ---
[facility] [address] [address] Phone:?[phone] Fax:?[phone] Referring Physician Information: Maciej Mclaughlin M.D. [id number] [facility] [address] Phone:?[phone] Fax:?[phone] Patient:Beti Brunerner D.O.B:?1990 Sex:?Female Phone:?[phone] [facility] MRN:?[id number] Exam Date:?03/16/2023 EXAM: MRI EXAMINATION OF THE LEFT KNEE CLINICAL INFORMATION: Left knee pain. Injury. No history of surgery to this area. Evaluate ACL tear. TECHNICAL INFORMATION: Coronal PD and STIR. Axial PD and T2 fat saturation. Sagittal PD and PD fat saturation images acquired. No prior studies for comparison. INTERPRETATION: Bones: Marrow edema signal to indicate osseous contusion all along the posterior margin of the tibial plateau. This includes a nondisplaced fracture along the posterior margin of the medial tibial plateau. There is a 1.5 cm mild to moderate impaction fracture with marked marrow edema signal involving the anterior weightbearing surface of the lateral femoral condyle. Mild contusion involves the fibular styloid. Additional osseous contusion without fracture along the anterior margin of the tibial plateau. Additional osseous contusion involves the inferomedial patella. No other abnormal bone marrow edema pattern is identified. Ligaments and tendons: The medial collateral ligament is intact, without acute sprain or tear. The iliotibial band, fibular collateral ligament, biceps femoris tendon and popliteus tendon all are intact. There is an acute appearance of ACL injury with complete rupture through the central portion of the ligament. Acute PCL sprain injury. There is irregularity and low to moderate grade partial tearing involving the mid to distal portion of the ligament. Extensor Mechanism: The patellar and quadriceps tendons are intact. The medial and lateral retinacula are intact. Knee Joint: There is a large knee joint effusion. No discrete popliteal cyst. Blood products identified within the joint. No discrete loose body. Medial Compartment: There is a meniscocapsular injury identified through the posterior horn medial meniscus. There is no evidence for discrete medial meniscal tear. No displaced flap fragment or parameniscal cyst. There is no focal chondral defect. No other significant changes of chondromalacia. Lateral Compartment: Tear and moderate truncation involves the body of the lateral meniscus. Severe truncation with near absence of meniscal tissue over 1.7 cm involving the posterior horn. There is a slender 1 cm flap fragment flipped cranial to the periphery of the posterior horn of the meniscus. There is an 8 mm flap fragment flipped around the corner along side the periphery of the tibial plateau at the level of the body. There is a 1.5 cm flap fragment arising from the anterior root insertion. There is no focal chondral defect. No other significant changes of chondromalacia. 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 No other significant chondromalacia. CONCLUSION: 1. Acute ACL injury with complete rupture through the central portion of the ligament. 2. Acute grade 2 PCL injury with low to moderate grade partial tear of the mid to distal ligament. 3. Associated ACL type osseous contusion pattern. Mild to moderate impaction fracture of the anterior weightbearing surface of the lateral femoral condyle. Nondisplaced fracture along the posterior margin of the medial tibial plateau. 4. Additional osseous contusion in keeping with a hyperextension type injury. 5. Lateral meniscal flap tear. Moderate truncation of the body with marked truncation of the posterior horn of the meniscus. Flap fragments arise from the anterior and posterior horns as may represent a torn bucket-handle fragment. There is an additional flap fragment flipped around the corner peripheral to the tibial plateau at the level of the body. 6. Meniscocapsular injury through the posterior horn medial meniscus without a discrete medial meniscal tear. 7. 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 KES Electronically signed on 03/16/2023 1:22:00 PM by Amaury Pierre M.D.
== END 2023-03-16 09:13 | disposition home or self-care (01) ==
LOC: MRI 09:14
PROVIDERS: PCP Physician Assistant Medical; Visit Provider Orthopaedic Surgery
DX: M25.562 Pain in left knee (principal); S83.512A Sprain of anterior cruciate ligament of left knee, initial encounter; S83.282A Other tear of lateral meniscus, current injury, left knee, initial encounter; M22.42 Chondromalacia patellae, left knee; S89.92XA Unspecified injury of left lower leg, initial encounter
CPT/HCPCS: 73721

== ENCOUNTER 2023-03-24 10:45 | Outpatient (CLI) | payer MEDICAID, SELFPAY | END 2023-03-24 10:46 | disposition home or self-care (01) | LOC: LKVREF 10:45 | PROVIDERS: PCP Physician Assistant Medical; Visit Provider Physician Assistant Medical | DX: Z01.818 Encounter for other preprocedural examination (principal) | CPT/HCPCS: 80048 ==

== ENCOUNTER 2023-04-01 06:08 | Day surgery (SDC) | payer MEDICAID, SELFPAY ==
[2023-04-01] VITALS (17 sets, daily range): BP systolic 100–124; BP diastolic 66–84; PULSE 50–91; RESP 12–22; TEMP 36.1–36.9; O2SAT 95–100; BMI 26.7
[2023-04-01] MEDS: LACTATED RINGERS 1000 ML 1,000 ML 100 ML IV (06:10)
[2023-04-01 06:37] LABS: Ur HCG Qualitative* Negative (Negative)
[2023-04-01] MEDS: MIDAZOLAM HCL 1 MG/ML inj IVP (07:23)
[2023-04-01] MEDS: fentaNYL 100 MCG/2 ML inj IVP (07:23)
--- NOTE | 2023-04-01 07:23 | W.PM.H&PU ---
History & Physical Update History & Physical Update H&P Reviewed and patient assessed: No changes noted
--- NOTE | 2023-04-01 07:24 | P.ORPRC_ITS ---
Procedure Note Date of procedure: 04/01/23 Procedure: PREOPERATIVE DIAGNOSIS: 1. Left knee ACL tear 2. Left knee lateral meniscus tear POSTOPERATIVE DIAGNOSIS: 1. Left knee ACL tear 2. Left knee lateral meniscus tear 3. Left knee medial femoral condyle chondromalacia PROCEDURE: 1. Left knee arthroscopic assisted ACL reconstruction with quadlink allograft 2. Left knee arthroscopic partial lateral meniscectomy 3. Left knee arthroscopic medial femoral condyle chondroplasty SURGEON: Roddy Mclaughlin M.D. DIRECTOR EMPLOYEE COMMUNICATIONS: Jesus COSME & Dorcas Frederick P.A.-C. Assistance were critical for this case to aid in patient positioning, knee manipulation, instrument exchange, and closure. ANESTHESIA: General plus femoral nerve block EBL: 20 mL TOURNIQUET: 89 minutes at 250 mmHg IMPLANTS: Arthrex femoral tight rope button, Arthrex 20 mm tibial ABS button; backup tibial fixation with a Arthrex 3.5 mm PEEK SwiveLock suture anchor; Arthrex quadlink allograft COMPLICATIONS: None INDICATIONS: 32 year old female who sustained an injury to her left knee, which resulted in left knee pain, swelling, and instability. MRI was obtained and confirmed complete ACL disruption, as well as a lateral meniscus tear. Surgery was subsequently recommended to provide knee stability and address the meniscus tear. Prior to surgery the risks and benefits of procedure were discussed with patient, all questions were answered, and informed consent was obtained. FINDINGS: Exam under anesthesia revealed a grade 2B Theron's. Knee was stable to varus and valgus stress at 0 and 30?. Posterior drawer was negative. The diagnostic arthroscopy showed complete midsubstance tear of the anterior cruciate ligament. There was a large radial flap tear involving the majority of the posterior horn of the lateral meniscus. Lateral meniscus tear extended from 10 mm lateral to the root attachment into the junction of the posterior horn and body. This tear involved approximately 90% of the posterior horn of lateral meniscus. The anterior horn and body of the lateral meniscus were intact. Medial meniscus was intact. PCL was intact. Area of grade 3 chondromalacia on the lateral weight-bearing surface of the medial femoral condyle which measured 1 cm x 2 cm. DESCRIPTION OF PROCEDURE: Patient was seen preoperatively and operative site was marked. Regional block was then performed by anesthesia staff. Patient was then brought to the operating room and placed in supine position on the OR table. Patient was given 1 g IV Ancef preoperatively for prophylaxis. The left lower extremity was placed in the leg timmons, and was then prepped and draped in the appropriate sterile fashion using ChloraPrep. A surgical time-out was performed confirming patient identity, surgical site, and surgical procedure. Anterolateral and anteromedial portals were injected with 1% lidocaine with epinephrine. Anterolateral portal was established. Anterior medial portal was then established after localization with a spinal needle. Diagnostic arthroscopy was performed with findings as noted above. Following the diagnostic arthroscopy, chondroplasty of the medial femoral condyle was performed removing loose fragments of cartilage. After chondroplasty, remnant cartilage was confirmed to be stable. During this portion of the procedure, the left leg was elevated and exsanguinated, and the tourniquet was inflated to 250 mmHg. We then turned our attention to lateral compartment, where there was noted to be a large flap tear involving the majority of the posterior horn of the lateral meniscus. The meniscus was flipped inferior to the meniscal body. Meniscus was reduced and inspected but was not amenable to repair. We subsequent proceeded with partial lateral meniscectomy using combination of arthroscopic biter and motorized shaver. Remnant meniscus was debrided to create smooth transition to normal meniscal tissue. The meniscus was then reprobed and confirmed to be stable. Attention was then turned to reconstruction of the ACL. The graft had been thawing on the back table inside the package in warm saline. Once this was properly thawed, it was prepared with the passing sutures and the femoral tight rope button. It was then placed on tension, and sized to 10 mm on the femoral side and 9.5 mm on the tibial side. While the graft was being prepared, the remaining ACL stump was debrided with a combination of shaver and basket forceps. Next, a small stab incision was made over the anterior lateral distal femur to allow for placement of the femoral guide. We then drilled the femoral tunnel in anatomic position using the 10 mm flip cutter to a depth of 35 mm. A small incision was then made over the anterior medial proximal tibia to allow for placement of the tibial guide. Tibial guide set at 55? was then placed in the appropriate position on the tibial footprint. The tibial tunnel was then drilled in anatomic position using the 9.5 mm flip cutter, and this tunnel measured approximately 30 mm in length. While attempting to maximize length of the tibial tunnel, the anterior cortex of tibia was drilled out necessitating the need for a 20 mm tibial ABS button. After drilling both tunnels, passing sutures were placed into the joint. Bone debris was then removed using arthroscopic shaver. Both tunnels were visualized and confirmed to be in ideal position in the center of their respective footprints. There was a 1-2 mm back wall of the femoral tunnel. After preparing the graft and drilling tunnels, the femoral button was flipped on the lateral cortex of the femur. Fluoroscopic imaging confirmed correct position of the button on the femoral cortex. The graft was passed, and approximately 15 mm of graft was seated into the femoral tunnel. Sutures were then passed out the tibial tunnel and graft was seated into the tibial tunnel. Knee was then brought out to full extension and femoral button was tensioned bringing 20 mm of graft into the femoral tunnel. and the femoral button was directly visualized to exit the femoral tunnel and the button was flipped. The 20 mm tibial ABS button was then secured and tensioned with the knee in full extension. The knee was then cycled and both buttons were retentioned with knee in extension. The graft was visualized and noted be in anatomic position. Probing of the graft confirmed that it was taut and stable. There was no impingement on the ACL or femoral condyles. The knee could be brought out to full extension without graft impingement. A Theron's test was performed and found to be stable grade 1A. Tibial sutures and internal brace were then secured into a 3.5 mm BioComposite SwiveLock suture anchor. Remnant sutures were cut and removed. Tibial tightrope sutures were tied over the button, and remnant sutures were cut removed. The tourniquet was deflated and the incisions were irrigated with normal saline. Wound closure was performed with 2-0 Vicryl and 4-0 Monocryl to close the subcutaneous and subcuticular layers, followed by application of Dermabond. Sterile dressings were applied, and the T scope hinged knee brace was applied. The patient was awoken from anesthesia and transferred to the PACU in stable condition. PLAN: 1. Weight bear as tolerated with hinged knee brace. Keep brace locked in extension when weight-bearing until quad function returns. 2. Crutches as needed for assistance with ambulation. 3 Ice or cryo cuff and elevation for pain and swelling. 4. Acetaminophen and/or ibuprofen, and oxycodone for pain as needed. 5. Knee range of motion and quad sets/straight leg raise regularly 6. Start formal physical therapy within 1 week per the ACL reconstruction protocol. 4. Follow up in Orthopedic Clinic in 1-2 weeks for a wound check.
--- NOTE | 2023-04-01 07:30 | CRLHL7_ITS ---
For Patients: As a result of the Century Cures Act, medical imaging exams and procedure reports are released immediately into your electronic medical record. You may view this report before your referring provider. If you have questions, please contact your health care provider. Indication: LT KNEE INTR AOP ACL REPAIR Technique: One fluoroscopic images left knee. Fluoroscopic time 1.2 seconds. IMPRESSION: Fluoroscopic guidance for ACL repair. Dictated by Garry Flynn MD @ 04/01/2023 11:16:17 AM (Electronically Signed)
[2023-04-01] MEDS: SODIUM CHLORIDE 0.9 % (FLUSH) 10 ML SYRINGE IVF (07:45)
--- NOTE | 2023-04-01 07:46 | SUR.PREOP ---
TIME?OUT:?0722 PT/RN/MDA?VERIFICATION?OF?SURGICAL?SITE Left Knee,?PROCEDURE Nerve Block,?AND?CONSENT OBTAINED?PRIOR?TO?INVASIVE?PROCEDURE.
[2023-04-01] MEDS: CEFAZOLIN 2 GM INJ IVP (07:58)
--- NOTE | 2023-04-01 10:57 | W.ANESCHARGE ---
Anesthesia Charges Start Date/Time Anesthesia Start Date: 04/01/23 Anesthesia Start Time: 07:43 Stop Date/Time Anesthesia Stop Date: 04/01/23 Anesthesia Stop Time: 10:52
--- NOTE | 2023-04-01 11:01 | W.PM.NB ---
Nerve Block Nerve Block Time Seen by Provider: 07:15 Date Seen: 04/01/23 Type of block requested by surgeon for post-operative analgesia: popliteal Side: left Time out performed: Yes Verification of patient name: Yes Verification of date of : Yes Site marking: site marked Name of person performing procedure: Brandan Continuous monitoring Was continuous monitoring of O2 sat, B/P, marketing teacher, recorded every 15 minutes?: Yes Procedure Checklist: sterile prep, needles and gloves Ultrasound guided. Images saved: Yes Medications given in 5ml increments after negative aspiration: Ropivicaine %: 0.5 mL: 20 Needle gauge: 22 Patient tolerated procedure well: Yes Additional comments: Needle noted adjacent to nerve Block Charges Block Charge (with Pro Fee): Sciatic Nerve Use of Ultrasound Machine for Block: Yes- US Guidance/pain block
--- NOTE | 2023-04-01 11:01 | W.PM.NB ---
Nerve Block Nerve Block Time Seen by Provider: 07:15 Date Seen: 04/01/23 Type of block requested by surgeon for post-operative analgesia: femoral Side: left Time out performed: Yes Verification of patient name: Yes Verification of date of : Yes Site marking: site marked Name of person performing procedure: Brandan Continuous monitoring Was continuous monitoring of O2 sat, B/P, patient monitor, recorded every 15 minutes?: Yes Procedure Checklist: sterile prep, needles and gloves Ultrasound guided. Images saved: Yes Medications given in 5ml increments after negative aspiration: Ropivicaine %: 0.5 mL: 20 Needle gauge: 20 Decadron (mg): 10 Precedex (mcg): 25 Patient tolerated procedure well: Yes Additional comments: Needle noted adjacent to nerve Block Charges Block Charge (with Pro Fee): Femoral Nerve Use of Ultrasound Machine for Block: Yes- US Guidance/pain block
--- NOTE | 2023-04-01 11:01 | W.ANESCHARGE ---
Anesthesia Charges Start Date/Time Anesthesia Start Date: 04/01/23 Anesthesia Start Time: 07:43 Stop Date/Time Anesthesia Stop Date: 04/01/23 Anesthesia Stop Time: 10:52
== END 2023-04-01 12:47 | disposition home or self-care (01) ==
PROVIDERS: PCP Physician Assistant Medical; Visit Provider Orthopaedic Surgery
PROC: (CPT 27428; principal; 2023-04-01 07:30)
DX: S83.512A Sprain of anterior cruciate ligament of left knee, initial encounter (principal); S83.282A Other tear of lateral meniscus, current injury, left knee, initial encounter; M94.262 Chondromalacia, left knee; G89.18 Other acute postprocedural pain
CPT/HCPCS: 29888; 29881; 01400; 64445; 64447; 73560; 76000; 76942; 81025; C1713; C1762; J0690; J1100; J1200; J2250; J2405; J2704; J2795; J3010; J7120; L1833

== ENCOUNTER 2023-08-08 09:45 | Outpatient (RCR) | payer MEDICAID, SELFPAY ==
--- NOTE | 2023-04-08 11:42 | PT.OPE ---
PT [facility] Eval PT [facility] Outpatient Eval Start: 04/07/23 17:00 Freq: Status: Active Protocol: Document 04/08/23 11:40 CJT (Rec: 04/08/23 11:42 CJT [id number]) E-signed By Aurelio Lindsay PT Physical Therapy Outpatient Evaluation Insurance Information Recert Due Date 07/07/23 Insurance Name Medicaid,are Medical Diagnosis S/P Left ACL reconstruction DOS 04/01/23 Treating Diagnosis Z47.89 - orthopedic aftercare Referring Roddy Barrientos MD Subjective Subjective Pt presents 7 days post-op L ACL reconstruction and lateral meniscectomy. Pt has been recovering well and using occasional Tylenol for her pain. Pts brace for her knee is unlocked with flexion set to 90 degrees. No issues with the knee buckling while ambulating. Pt reports she has been taking things very slow and being very cautious following her surgery. Was able to discontinue her crutches yesterday. Pt curious to know when she can take a bath again. No issues with toileting, bathing at this time. 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 Weight bear as tolerated with hinged knee brace. Keep brace locked in extension when weight-bearing until quad function returns. 2. Crutches as needed for assistance with ambulation. 3 Ice or cryo cuff and elevation for pain and swelling. 4. Acetaminophen and/or ibuprofen, and oxycodone for pain as needed. 5. Knee range of motion and quad sets/straight leg raise regularly 6. Start formal physical therapy within 1 week per the ACL reconstruction protocol. 4. Follow up in Orthopedic Clinic in 1-2 weeks for a wound check. Therapy Limitations/Systems Review Not Limited Objective Other/Pertinent Objective R knee AROM: 3-0-140 L knee PROM: 12-74 L Quad set: Fair R knee extension: 5/5 MMT R knee flexion: 5/5 MMT Circumferential Measurements R knee at patella: 37.0 cm L knee at patella: 39.5 cm L knee 5 cm above: 38.5 cm L knee 5 cm below: 37.0 cm Assessment Assessment/Impression Daina is a very pleasant 32 year old female who presents to our clinic for evaluation and treatment following L ACL reconstruction and lateral meniscectomy. Pt is recovering well and trying to do what she can at home to help her knee. Has been wearing her brace at all times for ambulation, takes it off when she is resting at home. Her pain has been very well managed and she is looking for additional exercises to perform at home. Today we reviewed expected rehab timelines for her recovery as well as expectations from her to help her recovery process including performing exercises at home and the importance of gradual progression to allow for appropriate healing. I have no doubt that Daina will progress very well during her time in therapy. The nature of the pts condition was explained and all questions were answered to the pts satisfaction. Skilled PT services are medically necessary to address deficits and return patient to highest level of function. Recommend physical therapy sessions 1-2/ week for 12-16 weeks. Pt agrees with this plan. Printout of HEP was given for I completion and pt gives verbal understanding of each exercise. Primary Functional Limitations Walking, running, stairs, squatting, riding horses Plan of Care Rehabilitation Potential Excellent Physical Therapy Goals STG - to be completed in 2-3 weeks: 1. Pt will report consistent use of ice and elevation of surgical limb to reduce swelling and pain. 2. Pt will demo excellent quad set to allow for weightbearing with unlocked knee brace to restore normal gait mechanics and reduce risk of falls. 3. Pt will demo full passive knee extension and flexion to 90 degrees to reduce risk of contracture. LTG - To be completed in 12-20 weeks: 1. Pt to be I with HEP so that she may I manage progression of symptoms. 2. Pt will demo 5/5 MMT for all LE motions bilaterally to provide proper support to B knees with activity. 3. Pt will ambulate with out AD and minimal gait deviations so that she may go on walks for exercise and pleasure. 4. Pt will Pt will demo L knee ROM equal to that of R to restore balance between limbs with activities including walking, running, and stairs. Treatment Plan/Direct Interventions Electrical Stimulation,Gait Training,Ice/Cold/ Vasopneumatic,Joint Mobilization,Manual Therapy, Neuromuscular Re-ed,Self-Care/ Home Management,Therapeutic Activities,Therapeutic Exercises Frequency/Duration 1-2/week for 12-16 weeks Patient Will Be Discharged From Therapy Completion of LTG(s),Skills Plateau,Independent w/HEP, Independently Progressing Evaluation Billing Untimed Code Treatment Minutes 35 PT Eval No Charge No Complexity Low Certification Information Initial Certification Date 04/08/23 Ending Certification Date 07/07/23 Provider Signature Shows Agreement With POC & Medical Necessity Physician Signature & Date Requested Please Sign/Date Here Physician Comment/Change : Physician NPI Number #
--- NOTE | 2023-07-11 10:07 | PT.OPDN ---
PT [facility] Out[facility] Daily Note PT [facility] Outpatient Daily Note Start: 04/07/23 17:00 Freq: Status: Active Protocol: Document 07/07/23 12:39 JOAQUINA (Rec: 07/07/23 12:44 JOAQUINA [id number]) E-signed By DORINA BernabeT, MS PT OP Daily Progress Note Visit Information Note Type Recert/Progress Note Visit Number [id number] Insurance Authorized Visits tbd Physician Authorized Visits eval and treat Insurance Information Recert Due Date 07/07/23 Insurance Name Medicaid,are Medical Diagnosis S/P Left ACL reconstruction DOS 04/01/23 Treating Diagnosis Z47.89 - orthopedic aftercare Referring Roddy Barrientos MD Subjective Subjective Pt reports her L LE is tight today after walking more over the past 2 days with nicer weather and after riding her horse for 15 minutes Tuesday. Able to get on and off her horse without a step stool with no issues, which was very encouraging. Noticing improvement in her L LE strength every few days. Pain Comments 0/10 Preferred Name Daina Precautions Treatment Precautions/Contraindications Progress to jogging Home Exercise Home Exercise Comments [id number] Objective Other/Pertinent Objective Knee AROM R 3-0-143 deg, L 3-0-141 in supine Strength Hip flex: B 5/5 Knee ext: B 5/5 Knee flex: B 5/5 Hip ABD: R 5/5, L 4+/5 Hip ext: B 5/5 SLS e/o firm: 15 sec SLS e/c firm: 15 sec mild sway SLS e/o foam: 15 sec SLS e/c foam: 9 sec mild-mod sway Stairs: good reciprocal pattern ascending<>descending 15 stairs Gait: stable pattern without deviations Henrietta's: R -, L + Patient Instructed in Risks/Benefits Yes Therapeutic Exercise Therapeutic Exercise Minutes (minutes) 60 Therapeutic Exercise: To Restore Recumbent bike L6 resistance x Functional Status 5 min for warmup and flexibility Elliptical L7 x 6 min with fatigue Seated HS stretch and gastroc stretch Leg press B without brace progressed 90# 12 x 3 equal weight 12 x 3 uni 45# with fatigue following Step ups progressed 8 16 x 3 slower ecc movement with no break/tapping at bottom of movement no UE support Progressed to 6 diagonal step back B with light UE support 5 x 3 Progressed TRX squats to uni 75 deg 8 x 3 with fatigue SLS ball toss on balance disc and with head turns SLS on blue side of bosu with reaching Marino stretch off EOB with PT assist and autogenic inhibition gentle quad contraction. Again improved L quad tightness following Standing quad stretch with again improve flexibility Progressed mat table step ups 24 with dowel Single leg deadlift to cone taps fwd, L and R 5# dumbbell with cone at 90 deg angle 8 x 3 Progressed to slide disc bwd, lateral and rotational full lunges B 8 x 3 with fatigue Progressed to ladder drills: B hopping, icky shuffle, in-in- out-out, fwd/bwd and lateral with fatigue Progressed heel raises to quick uni with counter support 18 x 3 with fatigue Treatment Minutes Timed Code Treatment Minutes 60 Total Treatment Time 60 Billing Units Therapeutic Exercise Units 4 Assessment/Impression Assessment/Impression Daina continues to progress very well overall at 14 weeks post-op with excellent response to progression of uni dynamic strengthening and progression of ladder drill hopping today with increased quad, gastroc and glute fatigue following. Full slide disc lunges led to high levels of fatigue with good response to modification of uni squats to down B and up with uni. Good response again to progression of dynamic balance combined with strengthening activities. Single leg mini squats remain very challenging due to NM control, stability and confidence. Reviewed importance of listening to her knee and not pushing past fatigue or objects that cause discomfort due to her excellent progress. Notable improvement in quad flexibility following Marino stretching again today. Good response again to all strengthening, and static and dynamic balance progressions with fatigue following. Pt will benefit from continued PT services to restore L LE flexibility, dynamic balance, and LE strength and endurance. Plan of Care Physical Therapy Goals STG - to be completed in 2-3 weeks: 1. Pt will report consistent use of ice and elevation of surgical limb to reduce swelling and pain. MET 2. Pt will demo excellent quad set to allow for weightbearing with unlocked knee brace to restore normal gait mechanics and reduce risk of falls. MET 3. Pt will demo full passive knee extension and flexion to 90 degrees to reduce risk of contracture. MET LTG - To be completed in 12-32 weeks: 1. Pt to be I with HEP so that she may I manage progression of symptoms. Progressing 2. Pt will demo 5/5 MMT for all LE motions bilaterally to provide proper support to B knees with activity. Progressing 3. Pt will ambulate with out AD and minimal gait deviations so that she may go on walks for exercise and pleasure. Progressing 4. Pt will Pt will demo L knee ROM equal to that of R to restore balance between limbs with activities including walking, running, and stairs. Progressing 5. Pt will be able to return to full horse riding activities with no elevation in L knee pain in order to safely perform all work duties . Progressing 6. Pt will be able to jog >6 minutes with no elevation in L knee pain to maintain cardiovascular health. Progressing Daily Plan of Care Continue per POC Recertification Information Initial Certification Date 04/08/23 Recertification Start Date 07/07/23 Recertification Due Date 10/05/23 Reasons to Continue Skilled Therapy Pt continues to progress very well in PT with a stable gait pattern and WNL L knee ROM. L LE strength improving with endurance remaining affected along with difficulty with strength and NM control for single leg squats. She is doing well with progression of hopping exercises as we work towards return to jogging. 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 Rehabilitation Potential Excellent Continued Plan of Care and Interventions 2 visits per week decreasing frequency as able for 12-18 additional PT visits working on continued therapeutic exercise and NM re-ed as we progress to plyometric exercises and return to jogging in future visits. Provider Signature Shows Agreement With POC & Medical Necessity Physician Comment/Change Comment or Changes Physician NPI Number #
== END 2023-12-06 23:59 | disposition home or self-care (01) ==
PROVIDERS: PCP Physician Assistant Medical; Visit Provider Orthopaedic Surgery
DX: Z47.89 Encounter for other orthopedic aftercare (principal); Z98.890 Other specified postprocedural states; Z51.89 Encounter for other specified aftercare
CPT/HCPCS: 97032; 97110; 97112; 97140; 97161

== ENCOUNTER 2023-10-17 12:13 | Outpatient (CLI) | payer MEDICAID, SELFPAY | END 2023-10-17 12:14 | disposition home or self-care (01) | LOC: NFLDREF 10-19 07:39 | PROVIDERS: PCP Physician Assistant Medical; Referring Provider Physician Assistant Medical; Visit Provider Physician Assistant | DX: R30.0 Dysuria (principal); N39.0 Urinary tract infection, site not specified | CPT/HCPCS: 87086; 87186 ==

== ENCOUNTER 2024-02-23 09:58 | Emergency (ER) | payer MEDICAID, SELFPAY ==
[2024-02-23 10:15] VITALS: BP 108/71; PULSE 68; RESP 18; TEMP 37.1; O2SAT 100; BMI 24.8
--- NOTE | 2024-02-23 10:25 | ED_ITS ---
HPI - General Adult General Chief complaint: Cough Stated complaint: Poss pneumonia Time Seen by Provider: 02/23/24 10:25 History of Present Illness HPI narrative: is concerned that she may have pneumonia. does have a hx of covid~ 6 weeks ago. this past week has had nasal congestion, sore throat, cough, fatigued and upper left sided cp. the cp was present yesterday- but went awat. cp became constant at 0700 when she awoke. does feel a little dizzy and describes the pain as if she had a broken rib. pain is worse with movement, has had spells of coughing. no fever at home. 33-year-old woman presenting to the emergency department with concern of potential pneumonia. Did have COVID diagnosed about 1 and 1/2 months ago. Has developed also some left-sided chest discomfort specifically yesterday and it resolved somewhat. Woke with more intense chest discomfort this morning. She has had a broken rib before and this feels similar. This was from falling from a horse. [place] farm in the area. Pain is definitely worse with movement. Has been having jags of coughing. over this last week with nasal congestion, cough, more fatigued, sore throat. Has not had a fever. No rashes noted. No noted palpitations. No unusual leg pain or swelling. Related Data Previous Rx's ?Medication ?Instructions ?Recorded citalopram 20 mg tablet 20 mg PO DAILY #90 tabs 08/29/23 benzonatate 200 mg capsule 200 mg PO TID PRN cough #15 caps 02/23/24 Allergies Allergy/AdvReac Type Severity Reaction Status Date / Time amoxicillin Allergy Mild Diarrhea Verified 10/17/23 12:10 Review of Systems Status of ROS: Reports: 6 or more systems reviewed and unremarkable except as noted in History and below [facility] Medical History Rupture of membranes with meconium present ?O77.0 - Labor and delivery complicated by meconium in amniotic fluid (ICD- 10) GBS (group B Streptococcus carrier), +RV culture, currently ?O99.820 - Streptococcus B carrier state complicating (ICD-10) ?Z34.90 - Encounter for supervision of normal , unspecified, unspecified trimester (ICD-10) (normal spontaneous vaginal delivery) (09/28/22) ?O80 - Encounter for full-term uncomplicated delivery (ICD-10) History of abnormal cervical Pap smear ?Z87.42 - Personal history of other diseases of the female genital tract (ICD-10) Surgical History S/P left knee arthroscopy (04/01/23) ?Z98.890 - Other specified postprocedural states (ICD-10) H/O wisdom tooth extraction ?K08.409 - Partial loss of teeth, unspecified cause, unspecified class (ICD- 10) History of loop electrosurgical excision procedure (LEEP) of cervix ?Z98.890 - Other specified postprocedural states (ICD-10) History of elbow surgery ?Z98.890 - Other specified postprocedural states (ICD-10) Family History Paternal Grandfather Dementia Maternal Grandfather Diabetes Other Migraine headache Social History Narrative: . 3 kids ( 14. 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 [employer] [place]. Alcohol- zero. Never- smoker What is your current living situation?: I presently have a place to live Problems where you live: pests, such as bugs, ants, or mice In the past 12 months, utilities in danger of being shut off: no In the past 12 mos, have been you worried that your food would run out before you had money to buy more?: never true In the past 12 mos, the food you bought just didn't last and you didn't have mo leonidas to buy more?: never true Smoking Status: Never smoker Do you use any of these nicotine containing products: None Second hand tobacco smoke exposure: No How often do you have a drink containing alcohol: never AUDIT-C Alcohol total score: 0 Non-prescribed substance use: denies use Caffeine: Yes How often does anyone, including family, friends and others, physically hurt you : never How often does anyone, including family, friends and others, insult or talk down to you: never How often does anyone, including family, friends and others, threaten you with harm: never How often does anyone, including family, friends and others, scream or curse at you: never Are you using contraception or practicing any form of control: No Health Related Social Needs: Inadequate housing (Z59.1) Exam Narrative: Exam Narrative: Pleasant. Direct. NAD. Breathing easily. Skin is warm and dry. No peripheral edema appreciated. She is well-perfused. Lungs are clear. No supraclavicular crepitus. Heart in regular rate and rhythm without murmur rub or gallop. Not clearly with reproducible pain over the left upper anterolateral chest as described. Oropharynx is moist without some posterior or pharyngeal erythema but in particular cobblestoning. Const: Vital Signs, click to edit/add: Vital Signs - 24 hr 02/23/24 10:15 Temperature 98.8 F Pulse Rate [Pulse Oximeter] 68 Respiratory Rate 18 Blood Pressure [Ri ght Upper Arm] 108/71 Pulse Oximetry 100 Oxygen Delivery Me thod Room Air Documenting provider has reviewed patient's vital signs: yes Course Vital Signs Vital signs: Initial Vital Signs Temperature 98.8 F 02/23/24 10:15 Temperature Source Temporal Artery Scan 02/23/24 10:15 Pulse Rate 68 02/23/24 10:15 Pulse Rhythm Regular 02/23/24 10:15 Respiratory Rate 18 02/23/24 10:15 Blood Pressure 108/71 02/23/24 10:15 Blood Pressure Mean 83 02/23/24 10:15 Blood Pressure Position Supine 02/23/24 10:15 Pulse Oximetry 100 02/23/24 10:15 Oxygen Delivery Method Room Air 02/23/24 10:15 Vital Signs Temperature 98.8 F 02/23/24 10:15 Pulse Rate 68 02/23/24 10:15 Respiratory Rate 18 02/23/24 10:15 Blood Pressure 108/71 02/23/24 10:15 Pulse Oximetry 100 02/23/24 10:15 Oxygen Delivery Method Room Air 02/23/24 10:15 Temperature 98.8 F 02/23/24 10:15 Pulse Rate 68 02/23/24 10:15 Respiratory Rate 18 02/23/24 10:15 Blood Pressure 108/71 02/23/24 10:15 Pulse Oximetry 100 02/23/24 10:15 Oxygen Delivery Method Room Air 02/23/24 10:15 Medical Decision Making MDM Narrative Medical decision making narrative: Does have pleuritic pain. I think this is likely more of an intercostal strain of some sort. So the might represent a pneumonia with prolonged symptoms. Pneumothorax or pulmonary embolus is possible as well. Pulmonary embolus likely per PERC rule. At minimum would seem to demonstrate some degree of ?bronchitis? with URI. Sore throat I think is related mostly to postnasal drip and coughing but could screen for strep. Would also screen for influenza, COVID. Chest x-ray independently reviewed by me looks to be a with normal cardiac silhouette and without pneumothorax and without infiltrate. Swabs are negative. I think is safe for discharge. Symptomatic treatment recommended. Anti- inflammatories or prednisone might help costochondritis if this is somewhat the explanation for the pain. See patient discharge plan for further discussion Focus on hydration. Consider sleeping under the mist of a cool mist humidifier. Menthol vapors migh t also be helpful. Pseudoephedrine, I like the 12 hour formulation myself, might be helpful with drying and decongestion and therefore with cough. Prescribing prednisone and Tessalon Perles from [facility] (Tessalon Perles/benzonatate unfortunately not available [facility] so am sending in a prescription to pharmacy if you need ) Return for increasing chest pain or shortness of breath particularly associated with fever. Medical Records Medical records reviewed: Yes I reviewed the patient's medical records Lab Data Lab results reviewed: Yes I reviewed the patient's lab results Labs: Lab Results 02/23/24 02/23/24 Range/Units 10:35 12:03 SARS-CoV-2 (PCR) Negative SARS-CoV-2 (Negative) Influenza Type A (PCR) Negative PCR FLU A (Negative) Influenza Type B (PCR) Negative PCR FLU B (Negative) RSV (PCR) Negative PCR RSV (Negative) Group A Strep DNA NOT DETECTED (Not Detectd) Discharge Plan Discharge Clinical Impression: Bronchitis, URI (upper respiratory infection), Chest pain Patient Disposition: Home, Self-Care Condition: Stable Additional Instructions: Focus on hydration. Consider sleeping under the mist of a cool mist humidifier. Menthol vapors might also be helpful. Pseudoephedrine, high likely 12 hour formulation myself, might be helpful with drying and decongestion and therefore with cough. Prescribing prednisone and Tessalon Perles from [facility] (Tessalon Perles/benzonatate unfortunately not available [facility] so am sending in a prescription to pharmacy if you need ) Return for increasing chest pain or shortness of breath particularly associated with fever. Prescriptions: New benzonatate 200 mg capsule 200 mg PO TID PRN (Reason: cough) Qty: 15 0RF No Action citalopram 20 mg tablet 20 mg PO DAILY Qty: 90 3RF Follow Up/Referrals: Olinda Galan PA-C [Primary Care Provider] - Stand Alone Forms: [employer] Info Instructions
--- NOTE | 2024-02-23 10:26 | CRLHL7_ITS ---
For Patients: As a result of the Century Cures Act, medical imaging exams and procedure reports are released immediately into your electronic medical record. You may view this report before your referring provider. If you have questions, please contact your health care provider. INDICATION: Cough TECHNIQUE: Chest 2 views. COMPARISON: None. FINDINGS/ IMPRESSION: No focal consolidation, effusion or pneumothorax. Cardiac size is within normal limit without pulmonary edema. No acute osseous findings. Dictated by Olive Galeana MD @ 02/23/2024 10:50:43 AM (Electronically Signed)
[2024-02-23 11:38] LABS: PCR FLU A Negative PCR FLU A (Negative); PCR FLU B Negative PCR FLU B (Negative); PCR RSV Negative PCR RSV (Negative); SARS PCR* Negative SARS-CoV-2 (Negative)
[2024-02-23 12:36] LABS: Strep A DNA Probe* NOT DETECTED (Not Detectd)
== END 2024-02-23 12:08 | disposition home or self-care (01) ==
PROVIDERS: Emergency Provider Family Medicine; PCP Physician Assistant Medical
DX: J40 Bronchitis, not specified as acute or chronic (principal); J06.9 Acute upper respiratory infection, unspecified; R07.9 Chest pain, unspecified
CPT/HCPCS: 71046; 87631; 87651; 99284